=== PATIENT | female | born 1970 | race Caucasian/White ===

== ENCOUNTER → 2024-07-11 15:04 | Outpatient (REF) | payer BC, SELFPAY | LOC: WDC 15:04 | PROVIDERS: ATTENDING PHYSICIAN Nurse Practitioner Obstetrics & Gynecology; FAMILY PHYSICIAN Family Medicine | DX: Z12.31 Encounter for screening mammogram for malignant neoplasm of breast (principal) | CPT/HCPCS: 77063; 77067 ==

== ENCOUNTER → 2025-07-21 09:03 | Outpatient (REF) | payer BC, SELFPAY | LOC: WDC 09:03 | PROVIDERS: ATTENDING PHYSICIAN Nurse Practitioner Family; FAMILY PHYSICIAN Family Medicine | DX: Z12.31 Encounter for screening mammogram for malignant neoplasm of breast (principal) | CPT/HCPCS: 77063; 77067 ==